=== PATIENT | female | born 1965 | race Caucasian/White ===

== ENCOUNTER 2019-10-02 18:01 | Emergency (ER) | payer SELFPAY ==
[2019-10-02] MEDS ORDERED: ACETAMINOPHEN 325 MG TABLET PO ONE (18:37)
[2019-10-02] MEDS ORDERED: IBUPROFEN 600 MG TABLET PO ONE (18:37)
--- NOTE | 2019-10-02 18:38 | ER Document Report ---
HPI - HPI Time Seen by Provider: 10/02/19 18:33 Pain Level: 4 Notes: Patient is a 53-year-old female presenting to the emergency department with right wrist pain and left rib pain. She reports she fell earlier today. States that she got caught off balance. Denies striking her head, denies any loss of consciousness. Has not taken any medications for same. - REPRODUCTIVE Reproductive: DENIES: : Past Medical History - General Information source: Patient - Social History Smoking Status: Current Every Day Smoker Frequency of alcohol use: Heavy Drug Abuse: None Family History: Reviewed & Not Pertinent Patient has suicidal ideation: No Patient has homicidal ideation: No - Medical History Medical History: Negative Surgical Hx: Negative - Immunizations Immunizations up to date: Yes Vertical Provider Document - CONSTITUTIONAL Notes: PHYSICAL EXAMINATION: GENERAL: Well-appearing, well-nourished and in no acute distress. HEAD: Atraumatic, normocephalic. EYES: Pupils equal round and reactive to light, extraocular movements intact, conjunctiva are normal. ENT: Nares patent, oropharynx clear without exudates. Moist mucous membranes. NECK: Normal range of motion, supple without lymphadenopathy LUNGS: Breath sounds clear to auscultation bilaterally and equal. No wheezes rales or rhonchi. HEART: Regular rate and rhythm without murmurs ABDOMEN: Soft, nontender, nondistended abdomen. No guarding, no rebound. No masses appreciated. Female : deferred Musculoskeletal: Swelling noted to right wrist, strong radial pulse, cap refill less than 3 seconds. Normal motor and sensation. NEUROLOGICAL: Cranial nerves grossly intact. Normal speech, normal gait. Normal sensory, motor exams PSYCH: Normal mood, normal affect. SKIN: Ecchymosis noted to left lateral ribs. No crepitus or deformity on pa lpation. Course - Re-evaluation Re-evalutation: Ribs w/Chest X-Ray 10/02/19 18:37 IMPRESSION: NO PNEUMOTHORAX. Possible nondisplaced anterior-lateral left 9th rib fracture. . Wrist X-Ray 10/02/19 18:37 IMPRESSION: Minimally impacted and angulated fracture of the distal right radius. The distal ulna is intact. The carpus is normally aligned. Radiology reports as outlined above. Patient will be placed in a volar splint, she will be referred to orthopedics. Patient verbalized understanding and agreement with this plan. Patient also discharged with incentive spirometer. Patient understands its use. The patient's emergency department workup and current diagnosis were explained to the patient and or family. Follow-up instructions were provided. Medications if prescribed were discussed. Instructions for when to return to the emergency department including specific worrisome symptoms were discussed with the patient and/or family. - Vital Signs Vital signs: Temp Pulse Resp BP Pulse Ox 98.9 F 74 16 119/86 H 96 10/02/19 18:19 10/02/19 18:19 10/02/19 18:19 10/02/19 18:19 10/02/19 18:19 Procedures - Immobilization Right wrist Pre-Proc Neuro Vasc Exam: Normal Immobilizer type: Volar splint Performed by: Provider Post-Proc Neuro Vasc Exam: Normal Discharge - Discharge Clinical Impression: Rib fracture Qualifiers: Encounter type: initial encounter Rib fracture type: single rib Fracture type: closed Laterality: left Qualified Code(s): S22.32XA - Fracture of one rib, left side, initial encounter for closed fracture Distal radius fracture, right Qualifiers: Encounter type: initial encounter Fracture type: closed Fracture morphology: unspecified fracture morphology Qualified Code(s): S52.501A - Unspecified fracture of the lower end of right radius, initial encounter for closed fracture Condition: Stable Disposition: HOME, SELF-CARE Additional Instructions: Rib Injuries and Fractures You have been diagnosed as having either bruised or broken ribs. These two injuries are treated in the same way. It will usually take four to six weeks for these injured ribs to heal. Sometimes, rib belts or anesthetic injections of the chest wall help reduce the pain. If you are using a rib belt, you should cough or take a deep breath at least every hour or two to prevent lung complications. You should not engage in any strenuous physical activity until released by your physician. The usual rule is "if it hurts, don't do it." Rib fractures can lead to serious lung complications including lung collapse, hemorrhage, and pneumonia. You should call the physician or return at once if any of the following occur: (1) Fever or chills. (2) Persistent cough, coughing up blood, or shortness of breath. (3) Increasing pain. (4) Weakness, lightheadedness, or fainting. Fractured Radius The bone called the radius is fractured. This type of fracture is typically caused by falling onto the outstretched hand. The fracture is not serious, however, and should heal well with adequate protection. Your asmita staples's evaluation shows the bone is in good position to heal. A cast or splint is used to protect the fracture. For the first few days after the injury, the arm should be elevated and ice packed. Healing takes from three to eight weeks, depending on the age of the patient and the seriousness of the fracture. Your doctor has explained the treatment plan. It's important that you fol low up as instructed to prevent complications. Call the doctor or return at once if severe pain or swelling occur, or if the hand becomes numb, swollen, or discolored. For the rib fracture, please use a pillow to splint your chest when taking a deep breath or coughing. Use the incentive spirometer, use it at least 6 times per day, the nursing staff will teach you how to do this. This allows for full expansion of your lungs and will help prevent pneumonia. For the fractured radius in your wrist keep the splint in place, apply ice to the area for 20 minutes at a time, take ibuprofen 600 mg every 6 hours. Use the narcotic pain medication for severe pain only. Call orthopedics Thursday to schedule a follow- up appointment. Prescriptions: Oxycodone HCl/Acetaminophen [Percocet 5-325 mg Tablet] 1 tab PO Q4H PRN #15 tablet PRN Reason: Referrals: MAGDA RODRIGUEZ JR, DO [ACTIVE PROVISIONAL STAFF] - Follow up as needed FERDINAND AMAYA MD [ACTIVE STAFF] - Follow up as needed
--- NOTE | 2019-10-02 19:06 | RADIOLOGY REPORT (SQ) ---
EXAM DESCRIPTION: WRIST RIGHT 3 VIEWS COMPLETED DATE/TIME: 10/02/2019 6:54 pm REASON FOR STUDY: fall COMPARISON: None. NUMBER OF VIEWS: Three views. TECHNIQUE: AP, lateral, and oblique radiographic images acquired of the right wrist. LIMITATIONS: None. FINDINGS: MINERALIZATION: Osteopenia. BONES: Minimally impacted and angulated fracture of the distal right radius. The distal ulna is inta ct. The carpus is normally aligned. SOFT TISSUES: No soft tissue swelling. No foreign body. OTHER: No other significant finding. IMPRESSION: Minimally impacted and angulated fracture of the distal right radius. The distal ulna i s intact. The carpus is normally aligned. TECHNICAL DOCUMENTATION: JOB ID: [id number] [employer]- All Rights Reserved Reading location - IP/workstation name: [email or web address]
--- NOTE | 2019-10-02 19:08 | RADIOLOGY REPORT (SQ) ---
EXAM DESCRIPTION: RIBS LEFT W/PA CHEST COMPLETED DATE/TIME: 10/02/2019 6:54 pm REASON FOR STUDY: fall COMPARISON: None. TECHNIQUE: Frontal view of the chest and additional views of the left ribs acquired. NUMBER OF VIEWS: Four view. LIMITATIONS: None. FINDINGS: FRONTAL CXR: No pneumothorax. No pleural effusion. No atelectasis or infiltrates. RIBS: Possible nondisplaced anterior-lateral left 9th rib fracture. No displaced rib fractures. No lytic or blastic bony lesions. OTHER: No other significant finding. IMPRESSION: NO PNEUMOTHORAX. Possible nondisplaced anterior-lateral left 9th rib fracture. . COMMENT: SITE OF TRAUMA/COMPLAINT MARKED/STAMP COMPLETED: NO. TECHNICAL DOCUMENTATION: JOB ID: [id number] [id number] [employer]- All Rights Reserved Reading location - IP/workstation name: [employer]
[2019-10-02] MEDS ORDERED: HYDROCODONE/ACETAMINOPHEN 5-325 MG (6 TAB/ER DISP) PO PRN (20:36)
[2019-10-02 21:09] VITALS: BP 135/95
== END 2019-10-02 21:15 | disposition home or self-care (01) ==
LOC: ER 18:01
DX: S22.32XA Fracture of one rib, left side, initial encounter for closed fracture (principal); S52.501A Unspecified fracture of the lower end of right radius, initial encounter for closed fracture; R07.81 Pleurodynia; W18.39XA Other fall on same level, initial encounter; F17.200 Nicotine dependence, unspecified, uncomplicated
CPT/HCPCS: 99284